=== PATIENT | female | born 1990 | race Hispanic/Latino ===

== ENCOUNTER 2022-04-02 09:12 | Emergency (ER) | payer MEDICAID, OTHER ==
[~2022-04-02] VITALS: Ht 154.9 cm; Wt 90.3 kg
[2022-04-02 09:51] LABS: BASOPHILS % (AUTO) 0.8 % (0.0-5.0); EOSINOPHILS % (AUTO) 0.7 % (0.0-8.0); HEMATOCRIT 41.9 % (36-48); LYMPHOCYTES % (AUTO) 23.8 % (21.0-51.0); MEAN CORPUSCULAR HEMOGLOBIN 28.1 pg (27.0-33.0); MEAN CORPUSCULAR HGB CONC 33.2 g/dL (32.0-36.0); MEAN CORPUSCULAR VOLUME 84.8 fL (79-99); MONOCYTES % (AUTO) 4.6 % (3.0-13.0); NEUTROPHILS % (AUTO) 69.7 % (40.0-77.0); PLATELET COUNT (AUTO) 234 K/uL (130-400); RED BLOOD CELL COUNT(AUTO) 4.94 MIL/uL (4.00-5.50); RED CELL DISTRIBUTION WIDTH 12.5 % (11.0-15.5); WHITE BLOOD COUNT (AUTO) 10.6 K/uL (4.8-10.8)
[2022-04-02] MEDS ORDERED: HYDROXYZINE 100MG/2ML VIAL IM STA (10:08)
[2022-04-02 10:14] LABS: ALBUMIN 3.7 g/dL (3.5-5.0); CREATININE 0.8 mg/dL (0.5-1.5); POTASSIUM 3.8 mmol/L (3.5-5.1); TOTAL PROTEIN, SERUM 7.6 g/dL (6.0-8.3)
[2022-04-02 10:24] LABS: APPEARANCE,URINE CLEAR (CLEAR); BILIRUBIN,URINE NEGATIVE (NEGATIVE); COLOR,URINE LIGHT-YELLOW (YELLOW); GLUCOSE, URINE (UA) NEGATIVE (NEGATIVE); KETONES,URINE NEGATIVE (NEGATIVE); LEUKOCYTE ESTERASE ,URINE 250 Leu/uL (NEGATIVE); NITRATE,URINE NEGATIVE (NEGATIVE); OCCULT BLOOD,URINE NEGATIVE (NEGATIVE); PH,URINE 6.5 (5.0-8.0); PROTEIN,URINE NEGATIVE (NEGATIVE); UROBILINOGEN,URINE 0.2 mg/dL (0.2-1.0)
[2022-04-02 10:29] LABS: HCG,QUALITATIVE URINE NEGATIVE (NEGATIVE)
[2022-04-02] MEDS ORDERED: HYDROXYZINE 50MG VIAL 50 MG/ML VIAL IM SCH (10:30)
[2022-04-02 10:33] LABS: BACTERIA,URINE RARE /HPF (None Seen); MUCUS,URINE RARE LPF (None Seen); SQUAMOUS EPITHELIAL CELL,UR RARE /HPF (0-2)
[2022-04-02] MEDS ORDERED: BUSP15 PO (11:39)
[2022-04-02] MEDS ORDERED: NITR100C4 PO (11:39)
[2022-04-02 11:51] VITALS: BP 122/74
== END 2022-04-02 11:53 | disposition home or self-care (01) ==
LOC: EDH 09:12
DX: N39.0 Urinary tract infection, site not specified (principal); F41.9 Anxiety disorder, unspecified; Z88.0 Allergy status to penicillin; Z98.890 Other specified postprocedural states
CPT/HCPCS: 99283; 82150; 80053; 83690; 85025; 87088; 81001; 81025; 36415; 96372; J3410 ×2

== ENCOUNTER 2025-03-20 01:07 | Emergency (ER) | payer BC, OTHER ==
[~2025-03-20] VITALS: Ht 154.9 cm; Wt 95.3 kg
[~2025-03-20 01:07] MED LIST: BUSP15 PO; NITR100C4 PO
--- NOTE | 2025-03-20 01:20 | EKG ---
[facility] Test Date: 2025-03-20 Test Time: 01:18:07 Pat Name: ALLISON KEARNS Department: ED Patient ID: [id number] Room: Gender: F Technical Illustrator: [id number] : 1990 Requested By: NAT FOSTER Order Number: [id number] Reading MD: Dylan Arellano Measurements Intervals [place] Rate: 83 P: 2 RI: 150 QRS: 14 QRSD: 83 T: 11 QT: 387 QTc: 456 Interpretive Statements Sinus rhythm Low voltage, precordial leads No previous ECG available for comparison Electronically Signed On 03-21-2025 13:31:58 HYDROMETER TESTER by Dylan Arellano Please click the below link to view image of tracing.
--- NOTE | 2025-03-20 01:28 | ERN ---
General Chief Complaint: Multiple Complaints Stated Complaint: CP, ANXIETY, PALPITATIONS Time Seen by MD: 01:16 History of Present Illness Initial Comments 34-year-old female history of anxiety here for evaluation of acute anxiety attack. Patient states that she was in her normal state of health however developed an acute anxiety attack yesterday around 3:00 p.m.. States she was able to push the rate however at midnight (1 hour ago) she started having worsening anxiety. Complaining of chest pressure and a squeezing pain in the center of her chest. Denies any cough or shortness a breath. No nausea vomiting diarrhea. No other acute symptoms at this time Allergies: Coded Allergies: Penicillins (Unverified Allergy, Unknown, HIVES, 04/02/22) Home Meds Active Scripts Nitrofurantoin Monohyd/M-Cryst (Macrobid 100 mg Capsule) 100 Mg Capsule, 100 MG PO BID for 7 Days, #14 CAP Prov:TIOMTEO JEROME MD 04/02/22 Buspirone HCl (Buspar) 15 Mg Tab, 5 MG PO BID for 30 Days, #60 TAB Prov:TIMOTEO JEROME MD 04/02/22 Past Medical History Past Medical History: Anxiety Past Surgical History: Social History Social History: Negative Female( History) LMP: Feb 27, 2025 Cardiovascular: (+) chest pain Psych: (+) anxiety; (-) auditory hallucinations, (-) visual hallucinations Review of Systems: was completed, & the rest were negative. Physical Exam General Appearance: (+) no apparent distress, (+) anxious Eye: bilateral eye normal inspection, bilateral eye PERRL, bilateral eye EOMI Ear, Nose, Throat: (+) hearing grossly normal, (+) moist mucous membraine Neck: (+) normal inspection, (+) supple Respiratory: (+) chest non-tender; (-) abnormal breath sound Heart: (+) tachycardia; (-) murmur Gastrointestinal: (+) soft, (+) non-tender Neurologic/Psychiatric: (+) normal speech, (+) no motor defecits Results Laboratory and Microbiology Lab and Micro Result Laboratory Tests Test 03/20/25 01:45 03/20/25 01:47 White Blood Count 11.9 K/uL (4.8-10.8) H Red Blood Count 4.72 MIL/uL (4.00-5.50) Hemoglobin 13.7 g/dL (12.0-16.0) Hematocrit 40.4 % (36-48) Mean Corpuscular Volume 85.6 fL (79-99) Mean Corpuscular Hemoglobin 29.0 pg (27.0-33.0) Mean Corpuscular Hemoglobin Concent 33.9 g/dL (32.0-36.0) Red Cell Distribution Width 12.4 % (11.0-15.5) Platelet Count 238 K/uL (130-400) Mean Platelet Volume 10.3 fL (7.5-10.5) Immature Granulocyte % (Auto) 0.3 % (0-1) Neutrophils (%) (Auto) 56.4 % (40.0-77.0) Lymphocytes (%) (Auto) 32.7 % (21.0-51.0) Monocytes (%) (Auto) 6.7 % (3.0-13.0) Eosinophils (%) (Auto) 3.1 % (0.0-8.0) Basophils (%) (Auto) 0.8 % (0.0-5.0) Neutrophils # (Auto) 6.7 K/uL (1.8-7.7) Lymphocytes # (Auto) 3.9 K/uL (1.0-4.8) Monocytes # (Auto) 0.8 K/uL (0.1-1.0) Eosinophils # (Auto) 0.37 K/uL (0.00-0.70) Basophils # (Auto) 0.10 K/uL (0.00-0.20) Absolute Immature Granulocyte (auto 0.03 K/uL (0-1) Nucleated Red Blood Cells 0.0 % (0.0-0.19) Sodium Level 136 mmol/L (136-145) Potassium Level 3.5 mmol/L (3.5-5.1) Chloride Level 101 mmol/L (101-111) Carbon Dioxide Level 27 mmol/L (21-32) Blood Urea Nitrogen 15 mg/dL (7-18) Creatinine 0.7 mg/dL (0.5-1.0) Glomerular Filtration Rate Calc 116 mL/min (>90) Random Glucose 114 mg/dL (70-105) H Total Calcium 8.9 mg/dL (8.5-10.1) Total Creatine Kinase 127 U/L (21-232) Troponin I High Sensitivity < 4 ng/L (4-50) L Urine Color LIGHT-YELLOW (YELLOW) Urine Appearance CLOUDY (CLEAR) H Urine pH 7.0 (5.0-8.0) Urine Specific [place] 1.017 (1.001-1.031) Urine Protein NEGATIVE mg/dL (NEGATIVE) Urine Glucose (UA) NEGATIVE mg/dL (NEGATIVE) Urine Ketones NEGATIVE mg/dL (NEGATIVE) Urine Occult Blood NEGATIVE (NEGATIVE) Urine Nitrate NEGATIVE (NEGATIVE) Urine Bilirubin NEGATIVE mg/dL (NEGATIVE) Urine Urobilinogen 0.2 mg/dL (0.2-1.0) Urine Leukocyte Esterase NEGATIVE Veronica/uL Urine RBC 0-1 /HPF (0-1) Urine WBC 2-5 /HPF (0-1) H Urine Squamous Epithelial Cells MOD /HPF (0-2) Urine Bacteria RARE /HPF (None Seen) Urine HCG, Qualitative NEGATIVE (NEGATIVE) MDM 34-year-old female here for likely acute anxiety attack. We will get cardiac workup and reassess. Disposition pending results of labs and clinical improvement MDM: Anxiety attack, chest pain, DIFFERENTIAL DIAGNOSIS: RATIONALE: TESTS CONSIDERED AND ORDERED SECONDARY TO SHARED DECISION MAKING INCLUDE: PREVIOUS OUTSIDE RECORDS REVIEWED: OLD ER VISITS. RISK OF COMPLICATION AND/OR MORBIDITY OR MORTALITY OF PATIENT MANAGEMENT: NONE MEDICATIONS-PER MEDICATION RECONCILIATION NEED FOR HOSPITALIZATION: PATIENT DOES NOT MEET CRITERIA FOR HOSPITALIZATION. NEED FOR EMERGENCY MAJOR/MINOR SURGERY: NO THERE ARE NO SOCIAL CONCERNS WITH THIS PATIENT. PRESCRIPTION DRUG MANAGEMENT PRESCRIPTIONS WILL INCLUDE SYMPTOMATIC CARE PATIENT'S PRIOR EXTERNAL MEDICAL RECORDS FROM OTHER ER VISITS WERE REVIEWED BY ME INDICATED. PRIOR TESTING AND RESULTS FROM PREVIOUS VISITS WERE REVIEWED. PRIOR TESTS WERE TAKEN INTO ACCOUNT WITH MEDICAL DECISION MAKING AND RESOURCE UTILIZATION, INDEPENDENT HISTORIAN/HISTORIANS WERE USED TO OBTAIN COMPLETE MEDICAL HISTORY. I INDEPENDENTLY INTERPRETED THE TEST THAT WERE PERFORMED, RESULTS WERE REVIEWED BY ME AND CONSIDERED FINDINGS ON RADIOLOGY IF ORDERED. MEDICAL MANAGEMENT AND EXAMINATION INTERPRETATION DISCUSSIONS WERE HAD BY ME WITH OTHER QUALIFIED HEALTHCARE PROFESSIONALS INDICATED FOR THE PATIENT'S CARE. ED Course Orders Procedure Category Date Status Time Vital Signs Per CPOE 03/20/25 Transmitted Routine 01:09 Chest 1vw RAD 03/20/25 Resulted 01:09 12 Lead Ekg Tracing- EKG 03/20/25 Complete Technical 01:09 Oxygen By Nc/Pulse Ox CPOE 03/20/25 Transmitted 01:09 Maintain Iv CPOE 03/20/25 Transmitted 01:09 Iv Insertion CPOE 03/20/25 Transmitted 01:09 Cardiac Monitoring CPOE 03/20/25 Transmitted 01:09 Pulse Oximetry With CPOE 03/20/25 Transmitted Vs And Prn 01:09 Cbc With Differential LAB 03/20/25 Complete 01:09 Activity: Br W/Brp CPOE 03/20/25 Transmitted With Assist 01:09 Creatine Kinase, Total LAB 03/20/25 Complete 01:09 Troponin I High LAB 03/20/25 Complete Sensitivity 01:09 Urinalysis Profile LAB 03/20/25 Complete 01:09 Basic Metabolic Panel LAB 03/20/25 Complete 01:09 ,Urine Test LAB 03/20/25 Complete 01:09 Lorazepam 2 Mg PHA 03/20/25 Complete (Ativan) 02:00 Lorazepam 2 Mg PHA 03/20/25 Complete (Ativan) 01:38 Current Medications Medications (Trade) Dose Ordered Sig/Mela Route PRN Reason Start Time Stop Time Status Last Admin Dose Admin Lorazepam (AtiVAN) 2 mg ONCE ONCE PO 03/20/25 02:00 03/20/25 02:01 DC 03/20/25 01:51 Lorazepam (AtiVAN) 2 mg STK-MED ONCE .ROUTE 03/20/25 01:38 03/20/25 01:38 DC Vital Signs Date Time Temp Pulse Resp B/P (MAP) Pulse Ox O2 Delivery O2 Flow Rate FiO2 03/20/25 01:30 98.1 91 24 156/94 98 Room Air* 0 21 03/20/25 01:08 97.0 78 24 155/88 100 Room Air DX & DISP Disposition: Discharge Departure Impression: Primary Impression: Anxiety Condition: Stable Scripts Hydroxyzine HCl (Atarax) 25 Mg Tab 1 CAP PO TID for anxiety for 7 Days, #21 CAP 0 Refills Prov: NAT FOSTER MD 03/20/25 Referrals: DALTON RODRIGUEZ MD (PCP) NAT FOSTER MD Mar 20, 2025 01:28
[2025-03-20 01:54] LABS: IMMATURE GRANULOCYTE ABSOLUTE 0.03 K/uL (0-1); NUCLEATED RED BLOOD CELLS 0.0 % (0.0-0.19); PLATELET COUNT (AUTO) 238 K/uL (130-400); RED BLOOD CELL COUNT(AUTO) 4.72 MIL/uL (4.00-5.50); RED CELL DISTRIBUTION WIDTH 12.4 % (11.0-15.5); WHITE BLOOD COUNT (AUTO) 11.9 K/uL (4.8-10.8)
[2025-03-20 01:57] LABS: APPEARANCE,URINE CLOUDY (CLEAR); GLUCOSE, URINE (UA) NEGATIVE (NEGATIVE); LEUKOCYTE ESTERASE ,URINE NEGATIVE Leu/uL (NEGATIVE); NITRATE,URINE NEGATIVE (NEGATIVE); OCCULT BLOOD,URINE NEGATIVE (NEGATIVE)
[2025-03-20 02:00] LABS: HCG,QUALITATIVE URINE NEGATIVE (NEGATIVE)
[2025-03-20 02:01] LABS: CREATININE 0.7 mg/dL (0.5-1.0); GLOMERULAR FILTR. RATE CALC 116.0 mL/min (>90); GLUCOSE,RANDOM 114.0 mg/dL (70-105); SODIUM SERUM 136.0 mmol/L (136-145); UREA NITROGEN, BLOOD 15.0 mg/dL (7-18)
[2025-03-20 02:01] LABS: ADD UA MICROSCOPIC YES; SQUAMOUS EPITHELIAL CELL,UR MOD /HPF (0-2)
[2025-03-20 02:06] LABS: CREATINE KINASE, TOTAL 127.0 U/L (21-232)
--- NOTE | 2025-03-20 03:21 | HMCIMG ---
EXAM: CR Chest, 1 view CLINICAL HISTORY: Chest pain. COMPARISON: None provided. FINDINGS: The lungs show no infiltrates or other acute findings. No pleural effusion or pneumothorax. The cardiomediastinal silhouette is within normal limits. No acute osseous abnormality. IMPRESSION: No acute cardiopulmonary process is evident. /[place]
[2025-03-20] MEDS ORDERED: HYD25 PO (03:27)
[2025-03-20 03:33] VITALS: BP 128/92; PULSE 85; RESP 24; TEMP 98.1; O2SAT 98
== END 2025-03-20 03:50 | disposition home or self-care (01) ==
LOC: EDH 01:07
DX: F41.9 Anxiety disorder, unspecified (principal); R07.89 Other chest pain; Z88.0 Allergy status to penicillin; Z79.899 Other long term (current) drug therapy; Z98.890 Other specified postprocedural states
CPT/HCPCS: 36415; 71045; 80048; 81001; 81025; 82550; 84484; 85025; 93005; 99284